=== PATIENT | female | born 1995 | race Caucasian/White ===

== ENCOUNTER 2018-09-07 17:26 | Emergency (ER) | payer OTHER ==
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
[2018-09-07] MEDS ORDERED: OXYCODONE/APAP 5/325 TAB PO ONE (17:53)
[2018-09-07] MEDS ORDERED: OXYCODONE/APAP 5/325 TAB ONE (17:57)
[2018-09-07 19:57] VITALS: BP 116/88
== END 2018-09-07 19:56 | disposition home or self-care (01) ==
PROC: 2W3DX1Z Immobilization of Left Lower Arm using Splint (ICD-10-PCS; principal; 2018-09-07)
DX: S62.615A Displaced fracture of proximal phalanx of left ring finger, initial encounter for closed fracture (principal); S62.617A Displaced fracture of proximal phalanx of left little finger, initial encounter for closed fracture; S66.50 Unspecified injury of intrinsic muscle, fascia and tendon of other and unspecified finger at wrist and hand level; V19.9XXA Pedal cyclist (driver) (passenger) injured in unspecified traffic accident, initial encounter; Y93.55 Activity, bike riding